=== PATIENT | female | born 1980 | race Caucasian/White ===

== ENCOUNTER 2020-05-25 07:47 | Inpatient (IN) | payer OTHER, SELFPAY ==
[2020-05-25] VITALS (9 sets, daily range): BP systolic 119–173; BP diastolic 74–93; PULSE 71–91; RESP 16–18; TEMP 35.6–37; O2SAT 97–100; BMI 24.2
--- NOTE | 2020-05-25 07:54 | ED.ABDPAIN ---
HPI - Abdominal Pain General Chief Complaint: Abdominal Pain Stated Complaint: abd pain Time Seen by Provider: 05/25/20 07:54 Source: patient Mode of arrival: ambulatory Limitations: no limitations History of Present Illness MD elicited complaint: abdominal pain Pertinent past history: none Onset (ago): day(s) (started Saturday night / Saturday morning) Pain Consistency: constant Location: none Severity: moderate Quality: cramping and stabbing Radiation: none Migration to: no migration Exacerbating factors: eating Relieving factors: nothing Associated symptoms: nausea and vomiting Related Data Allergies Allergy/AdvReac Type Severity Reaction Status Date / Time No Known Allergies Allergy Verified 05/25/20 08:04 Review of Systems Review of Systems Constitutional : No Weight loss, No Fever, No Chills ENT/Mouth : No sore throat, No Rhinorrhea Eyes: No Swelling, No Redness Cardiovascular : No Chest Pain, No SOB, NoEdema Respiratory : No Cough, No Sputum, No Wheezing Gastrointestinal : Positive Nausea, Positive Vomiting,no Diarrhea, positive abdominal Pain, No Hematochezia, No Melena Genitourinary : No Dysuria, No Urinary Frequency, No Hematuria, No Urgency Musculoskeletal : No joint pain, No Myalgias, No Joint Swelling Skin : No Skin Lesions, No rash Neuro : No Weakness, No Numbness, No Dizziness, No Headache Psych : No Anxiety/Panic, No Depression Heme/Lymph: No Bruising, No Lymphadenopathy Endocrine : No Polyuria, No Polydipsia All other systems reviewed and are negative. Physical Exam Vital Signs: Vital Signs: Last Vital Signs Temp 98.2 F 05/25/20 08:45 Pulse 75 05/25/20 08:45 Resp 16 05/25/20 08:45 BP 140/88 H 05/25/20 08:45 Pulse Ox 100 05/25/20 08:45 Body Mass Index 24.2 Appearance: Alert. Oriented X3. No acute distress. Eyes: Pupils equal, round and reactive to light. ENT: Pharynx normal. Neck: Normal inspection. Neck supple. CVS: Normal heart rate and rhythm. Pulses normal. Respiratory: No respiratory distress. Breath sounds normal. Abdomen: Soft and moderate RUQ tenderness with + Brink's sign. . Skin: Skin warm and dry. Normal skin color. Normal skin turgor. Extremities: No lower extremity edema. No calf ttp Neuro: Oriented X 3. No motor deficit. No sensory deficit. Course Course Course Narrative: Dr. Charles aware to admit patient MDM - Abdominal Pain MDM Narrative Medical decision making narrative: 40 yo female with no sig PMH here with several days of upper abdominal pain and RUQ pain with n/v after eating junk food - will need labs, IVF, GI cocktail, IV Toradol - US to evaluate GB and pancreas, dispo per results and findings. Differential Diagnosis Differential diagnosis: Likely abdominal pain Differential diagnosis narrative:: choleycystitis, pancreatitis, gastritis Lab Data Result diagrams: 05/25/20 08:24 05/25/20 08:24 Labs: Lab Results 05/25/20 05/25/20 05/25/20 Range/Units 08:12 08:24 08:24 WBC 7.9 (4.8-10.8) X10*3/uL RBC 4.67 (4.20-5.50) X10*6/uL Hgb 14.3 (12.0-16.0) g/dl Hct 41.7 (37-47) % MCV 89.3 (80-98) fL MCH 30.6 (27.0-33.0) pg MCHC 34.3 (31.0-35.0) g/dl RDW 12.5 (11.0-16.0) % Plt Count 271 (160-400) X10*3/uL MPV 10.6 (9.4-12.3) fL Immature Gran % (Auto) 0.1 (0.0-0.4) % Neut % (Auto) 71.0 (45-73) % Lymph % (Auto) 19.7 L (20-40) % [place] % (Auto) 6.8 (2-11) % Eos % (Auto) 2.3 (0-4) % Baso % (Auto) 0.1 (0-2) % Lymph # (Auto) 1.6 (1.2-4.9) X10*3/uL [place] # (Auto) 0.5 (0.1-1.2) X10*3/uL Eos # (Auto) 0.2 (0.0-0.4) X10*3/uL Baso # (Auto) 0.0 (0.0-0.2) X10*3/uL Abs Immat Gran (auto) 0.01 (0.00-0.03) X10*3/uL Absolute Neuts (auto) 5.6 (2.0-8.3) X10*3/uL Absolute Nucleated RBC 0.000 (0.0-0.012) X10*3/uL Nucleated RBC % (auto) 0.0 (0.0-0.2) /100WBC Hold Blue Top SEE NOTE Sodium (135-145) mmol/L Potassium (3.3-5.1) mmol/l Chloride (96-108) mmol/L Carbon Dioxide (22-29) mmol/L Anion Gap (12-20) BUN (9-16) mg/dL Creatinine (0.5-1.4) mg/dL Estim Creat Clear Calc Estimated GFR Random Glucose (60-115) mg/dL Calcium (8.4-10.2) mg/dL Magnesium (1.6-2.6) mg/dL Total Bilirubin (0.0-1.0) mg/dL Direct Bilirubin (0.0-0.5) mg/dL AST (5-31) U/L ALT (0-31) U/L Alkaline Phosphatase (39-117) U/L Total Protein (6.5-8.0) g/dL Albumin (3.5-5.0) g/dL Urine Color DARK YELLOW Urine Appearance CLEAR Urine pH 6.0 (5.0-8.0) Ur Specific [place] 1.020 (1.005-1.025) Urine Protein TRACE (NEG-TRACE) MG/DL Urine Glucose (UA) NEG (NEG) MG/DL Urine Ketones 15 (NEG) MG/DL Urine Blood NEG (NEG) Urine Nitrite NEG (NEG) Ur Leukocyte Esterase NEG (NEG) Urine Test NEGATIVE (NEGATIVE) 05/25/20 Range/Units 08:24 WBC (4.8-10.8) X10*3/uL RBC (4.20-5.50) X10*6/uL Hgb (12.0-16.0) g/dl Hct (37-47) % MCV (80-98) fL MCH (27.0-33.0) pg MCHC (31.0-35.0) g/dl RDW (11.0-16.0) % Plt Count (160-400) X10*3/uL MPV (9.4-12.3) fL Immature Gran % (Auto) (0.0-0.4) % Neut % (Auto) (45-73) % Lymph % (Auto) (20-40) % [place] % (Auto) (2-11) % Eos % (Auto) (0-4) % Baso % (Auto) (0-2) % Lymph # (Auto) (1.2-4.9) X10*3/uL [place] # (Auto) (0.1-1.2) X10*3/uL Eos # (Auto) (0.0-0.4) X10*3/uL Baso # (Auto) (0.0-0.2) X10*3/uL Abs Immat Gran (auto) (0.00-0.03) X10*3/uL Absolute Neuts (auto) (2.0-8.3) X10*3/uL Absolute Nucleated RBC (0.0-0.012) X10*3/uL Nucleated RBC % (auto) (0.0-0.2) /100WBC Hold Blue Top Sodium 133 L (135-145) mmol/L Potassium 3.4 (3.3-5.1) mmol/l Chloride 100 (96-108) mmol/L Carbon Dioxide 25 (22-29) mmol/L Anion Gap 11 L (12-20) BUN 10 (9-16) mg/dL Creatinine 0.75 (0.5-1.4) mg/dL Estim Creat Clear Calc 94.3 Estimated GFR > 60 Random Glucose 152 H (60-115) mg/dL Calcium 7.9 L (8.4-10.2) mg/dL Magnesium 1.7 (1.6-2.6) mg/dL Total Bilirubin 1.5 H (0.0-1.0) mg/dL Direct Bilirubin 0.9 H (0.0-0.5) mg/dL AST 91 H (5-31) U/L ALT 154 H (0-31) U/L Alkaline Phosphatase 202 H (39-117) U/L Total Protein 6.5 (6.5-8.0) g/dL Albumin 3.7 (3.5-5.0) g/dL Urine Color Urine Appearance Urine pH (5.0-8.0) Ur Specific [place] (1.005-1.025) Urine Protein (NEG-TRACE) MG/DL Urine Glucose (UA) (NEG) MG/DL Urine Ketones (NEG) MG/DL Urine Blood (NEG) Urine Nitrite (NEG) Ur Leukocyte Esterase (NEG) Urine Test (NEGATIVE) Discharge Plan Discharge Clinical Impression: Acute cholecystitis Patient Disposition: Admitted As Inpatient [facility] Past Medical History Attestation statement: The following information was validated with the patient. Medical History Asthma Social History Social History (Updated 05/25/20 @ 08:09 by Prerna Howard DO) Smoking Status: Never smoker Use of substances other than those prescribed or required for medical reasons: No Advance Directives: No Advance Directives Information Provided: No
--- NOTE | 2020-05-25 08:07 | US_ITS ---
EXAMINATION: US ABDOMEN COMPLETE CLINICAL INFORMATION: Right upper quadrant pain. COMPARISON: None TECHNIQUE: Real-time imaging of the abdominal viscera. FINDINGS: PANCREAS: Normal. ABDOMINAL AORTA: The proximal, mid, and distal segments are normal in caliber. INFERIOR VENA CAVA: Visualized portions are normal. LIVER: Normal. The liver is normal in size. The liver contour is normal. Parenchymal echogenicity is normal. No focal hepatic lesion. There is no intrahepatic biliary duct dilatation seen. GALLBLADDER: Cholelithiasis is present. There is some fluid seen within the wall of the gallbladder without pericholecystic fluid. Wall measures approximately 3 mm in diameter with some irregularity with the appearance of adenomyosis. Cholesterol polyps are present. There is tenderness to palpation overlying the gallbladder. COMMON BILE DUCT: Normal in caliber measuring 0.5 cm in diameter. RIGHT KIDNEY: Normal. No hydronephrosis. No renal calculi or focal parenchymal lesions. The kidney measures 11.6 cm in maximum dimension. LEFT KIDNEY: Normal. No hydronephrosis. No renal calculi or focal parenchymal lesions. The kidney measures 11.8 cm in maximum dimension. SPLEEN: Normal. The spleen measures 11.9 cm in maximum dimension. FREE FLUID: None. US/US abdomen complete IMPRESSION: Borderline thickened wall of the gallbladder with some fluid within the wall as well as cholelithiasis and findings of cholesterol polyps. Combination of above findings can be related to acute cholecystitis. Adenomyosis.
[2020-05-25 08:20] LABS: Glucose Urine UA NEG (NEG); Leukocyte Esterase Urine NEG (NEG); Nitrite Urine NEG (NEG); Urine Blood NEG (NEG); Urine Ketones 15 MG/DL (NEG); Urine Protein TRACE MG/DL (NEG-TRACE)
[2020-05-25 08:23] LABS: Appearance Urine CLEAR; Color Urine DARK YELLOW
[2020-05-25 08:24] LABS: UPreg QC Valid YES; Urine Pregnancy NEGATIVE (NEGATIVE)
[2020-05-25] MEDS: 0.9 % Sodium Chloride 1,000 ML 999 ML IVCONT (08:25)
[2020-05-25] MEDS: ondansetron HCL 4 MG/2 ML VIAL IVPUSH (08:25)
[2020-05-25] MEDS: Magnesium Hydrox/Alum Hydrox 30 ML ORAL.SUSP PO (08:25)
[2020-05-25] MEDS: Lidocaine HCl Viscous 2 % 15 ML SOLUTION MUCOUS MEM (08:25)
[2020-05-25] MEDS: Ketorolac Tromethamine 30 MG/ML VIAL IVPUSH (08:26)
[2020-05-25 08:54] LABS: MANUAL DIFF FLAG NO
[2020-05-25 08:57] LABS: Basophils Percent Auto 0.1 % (0-2); Eosinophils Absolute Auto 0.2 X10*3/uL (0.0-0.4); Eosinophils Percent Auto 2.3 % (0-4); Hematocrit 41.7 % (37-47); Hemoglobin 14.3 g/dl (12.0-16.0); Imm Gran Abs Auto 0.01 X10*3/uL (0.00-0.03); Imm Gran Pct Auto 0.1 % (0.0-0.4); Lymphocytes Absolute Auto 1.6 X10*3/uL (1.2-4.9); Lymphocytes Percent Auto 19.7 % (20-40); Mean Corpuscular HGB Conc 34.3 g/dl (31.0-35.0); Mean Corpuscular Hemoglobin 30.6 pg (27.0-33.0); Mean Corpuscular Volume 89.3 fL (80-98); Mean Platelet Volume 10.6 fL (9.4-12.3); Monocytes Absolute Auto 0.5 X10*3/uL (0.1-1.2); Monocytes Percent Auto 6.8 % (2-11); Neutrophils Absolute Auto 5.6 X10*3/uL (2.0-8.3); Platelet Count 271 X10*3/uL (160-400); Red Blood Count 4.67 X10*6/uL (4.20-5.50); Red Cell Distribution Width 12.5 % (11.0-16.0); White Blood Count 7.9 X10*3/uL (4.8-10.8)
[2020-05-25 09:28] LABS: Alanine Aminotransferase 154 U/L (0-31); Albumin Level 3.7 g/dL (3.5-5.0); Alkaline Phosphatase 202 U/L (39-117); Anion Gap 11 (12-20); Aspartate Amino Transferase 91 U/L (5-31); Bilirubin Direct 0.9 mg/dL (0.0-0.5); Bilirubin Total 1.5 mg/dL (0.0-1.0); Blood Urea Nitrogen 10 mg/dL (9-16); Calcium 7.9 mg/dL (8.4-10.2); Carbon Dioxide 25 mmol/L (22-29); Chloride 100 mmol/L (96-108); Creatinine Clr Calc Pharmacy 94.3; Estimated Glomerular Filt Rate > 60; Glucose Random 152 mg/dL (60-115); Magnesium 1.7 mg/dL (1.6-2.6); Potassium 3.4 mmol/l (3.3-5.1); Sodium 133 mmol/L (135-145); Total Protein 6.5 g/dL (6.5-8.0)
[2020-05-25] MEDS: Piperacillin Sodium/Tazobactam 3.375 GM in 0.9 % Sodium Chloride 50 ML IV ×3 (11:00→23:59)
[2020-05-25 11:05] LABS: Lipase 2702 U/L (8-78)
[2020-05-25 11:29] LABS: COVID-19 Test Negative (Negative)
--- NOTE | 2020-05-25 12:06 | P.HPGS_ITS ---
History of Present Illness History of Present Illness Date of Service: 05/25/20 Chief complaint: abd pain Narrative: Chantale Sandoval is a 40 year old female presenting with a complaint of abdominal pain in the epigastrium and right upper quadrant radiating into the back. Pain began last Saturday05/20/2020 after eating some junk food. Pain has persisted is been associated with nausea and vomiting. She is not sure if she has had a fever but she has felt chills. She denies a cough or other respiratory symptoms. She does have a history of heartburn but denies pain to this severity. The pain has persisted despite avoiding all foods therefore she presented to the emergency department. Emergency department she was noted to be tender in the right upper quadrant with a positive Brink sign. Ultrasound of the abdomen confirmed gallstones within the gallbladder with a tender gallb ladder suggestive of acute cholecystitis. Review of Systems Constitutional: Constitutional: Denies chills, Denies fever(s), Denies headache(s) and Denies poor appetite ENT: Denies dizziness and Denies headache(s) Cardiovascular: Cardiovascular: Denies chest pain, Denies rapid heart rate, Denies palpitations and Denies slow heart rate Respiratory: Respiratory: Denies chest congestion, Denies cough, Denies pain on inspiration and Denies wheezing Comments: History of mild asthma, taking no medications Gastrointestinal: Gastrointestinal: Reports abdominal pain, Denies bloating, Denies change in stool character, Denies constipation, Denies diarrhea, Reports nausea, Reports vomiting and Denies hematemesis Musculoskeletal: Musculoskeletal: Denies back pain, Denies arthralgias, Denies joint swelling and Denies numbness Integumentary/Breasts: Skin/Breast: Denies change in pigmentation, Denies erythema and Denies rash Neurologic: Denies confusion, Denies dizziness, Denies headache(s) and Denies numbness Psychiatric: Psychiatric: Denies anxiety, Denies confusion and Denies depression Endocrine: Endocrine: Denies palpitations Hematologic/Lymphatic: Hematologic/Lymphatic: Denies easy bleeding, Denies easy bruising and Denies lymphadenopathy Allergic/Immunologic: Allergic/Immunologic: Denies wheezing PMFSH Past Medical History Medical History Asthma Social History Social History Alcohol intake: never Smoking Status: Never smoker Use of substances other than those prescribed or required for medical reasons: No Advance Directives: No Advance Directives Information Provided: No Meds Allergies Allergy/AdvReac Type Severity Reaction Status Date / Time No Known Allergies Allergy Verified 05/25/20 08:04 Physical Exam Vital Signs: Vital Signs: Last Vital Signs Temp 98.2 F 05/25/20 10:58 Pulse 91 05/25/20 10:58 Resp 16 05/25/20 10:58 BP 146/93 H 05/25/20 10:58 Pulse Ox 100 05/25/20 10:58 Body Mass Index 24.2 Const: General: cooperative, comfortable and well developed; No confusion Nutritional Appearance: well nourished Orientation/consciousness: patient oriented x3 and No confusion Eyes: Sclerae: sclerae normal EOM: EOMs intact bilaterally Neck: Neck: Yes normal visual inspection Resp: Effort & Inspection: normal respiratory effort, no cough and no respiratory distress Cardio: Jugular venous distension: no JVD Rate: regular rate Rhythm: regular rhythm GI: Inspection: Yes normal to inspection Palpation (GI): Soft to palpation, Tenderness to palpation present (GI) in the RUQ and Brink's sign positive, no guarding and not rigid Percussion: Yes normal to percussion Auscultation: normal bowel sounds Skin: General skin exam: dry skin Rashes: no rashes Neuro: General: patient oriented x3, no focal motor deficits and No confusion Extrem: General: Yes full ROM and Yes no clubbing, cyanosis or edema Results Results Labs: Short CBC 05/25/20 Range/Units 08:24 WBC 7.9 (4.8-10.8) X10*3/uL Hgb 14.3 (12.0-16.0) g/dl Hct 41.7 (37-47) % Plt Count 271 (160-400) X10*3/uL BMP 05/25/20 08:24 Sodium 133 L Potassium 3.4 Chloride 100 Carbon Dioxide 25 BUN 10 Creatinine 0.75 Calcium 7.9 L Liver Function 05/25/20 Range/Units 08:24 Total Bilirubin 1.5 H (0.0-1.0) mg/dL Direct Bilirubin 0.9 H (0.0-0.5) mg/dL AST 91 H (5-31) U/L ALT 154 H (0-31) U/L Alkaline Phosphatase 202 H (39-117) U/L Albumin 3.7 (3.5-5.0) g/dL Urine 05/25/20 Range/Units 08:12 Urine Color DARK YELLOW Urine Appearance CLEAR Urine pH 6.0 (5.0-8.0) Ur Specific [place] 1.020 (1.005-1.025) Urine Protein TRACE (NEG-TRACE) MG/DL Urine Glucose (UA) NEG (NEG) MG/DL Urine Test NEGATIVE (NEGATIVE) Assessment and Plan (1) Acute cholecystitis: Status: Acute Patient presents with complaints of abdominal pain of 6 days duration located in the right upper quadrant. On examination the patient is tender in the right upper quadrant with a positive Brink sign. Laboratories revealed normal white blood cell count however ultrasound is significant for changes consistent with acute cholecystitis due to cholelithiasis. We discussed options including laparoscopic cholecystectomy. To have abdominal pain despite restricting her intake, she wishes to proceed with the surgery. After discussion of the procedure, risks, and alternatives, she consents to a laparoscopic or possible open cholecystectomy. She will be added on the schedule for tomorrow.
--- NOTE | 2020-05-25 14:18 | PC.NURSE ---
call to med-surg for report.
--- NOTE | 2020-05-25 15:08 | PC.NURSE ---
x1 attempt to give report to med surg- awaiting callback
[2020-05-25] MEDS: 0.9 % Sodium Chloride Flush 3 ML SYRINGE IVFLUSH (18:29)
[2020-05-25] MEDS: Dextrose 5 % and Lactated Ring 1,000 ML 125 ML IVCONT (19:16)
[2020-05-25] MEDS: Flu Vacc QS2020-21(6mos up)/PF 0.5 ML SYRINGE IM (21:01)
[2020-05-26] VITALS (10 sets, daily range): BP systolic 120–158; BP diastolic 75–85; PULSE 62–94; RESP 16–20; TEMP 36.2–37.6; O2SAT 95–98; BMI 24.2
[2020-05-26] MEDS: 0.9 % Sodium Chloride Flush 3 ML SYRINGE IVFLUSH (00:09)
[2020-05-26] MEDS: Piperacillin Sodium/Tazobactam 3.375 GM in 0.9 % Sodium Chloride 50 ML IV (04:57)
--- NOTE | 2020-05-26 08:51 | MHC.CM.PN ---
PATIENT LIVES WITH FAMILY. SHE IS INDEPENDENT WITH ALL ADLS. NO DME OR SERVICES IN THE HOME. PATIENT WILL REQUIRE A RETURN TO WORK NOTE UPON DISCHARGE. SURGERY SCHEDULED FOR 14:00 TODAY; HOWEVER, SHE MAY BE ABLE TO BE SCHEDULED EARLIER ACCORDING TO PATIENT. CASE MANAGEMENT FOLLOWING FOR ANY DISCHARGE NEEDS.
--- NOTE | 2020-05-26 11:28 | HO.ANESPROP2 ---
FORMERLY [facility], LATER [facility] Past Medical History Medical History Asthma Social History Social History Household Members: Significant Other and Children Housing: House Do you presently have visiting nurse or other home services: No Alcohol intake: never Smoking Status: Never smoker Use of substances other than those prescribed or required for medical reasons: No Have you been hit, kicked, punched, or otherwise hurt by someone within the past year? If so, by whom?: No Do you feel safe in your current relationship?: Yes Is there a partner from a previous relationship who is making you feel unsafe now?: No Are you made to feel afraid or neglected: No Advance Directives: No Advance Directives Information Provided: No Do you have thoughts of harming others: None Do you have a plan to hurt others: No Plan Recently lost weight without trying: No Meds Allergies Allergy/AdvReac Type Severity Reaction Status Date / Time No Known Allergies Allergy Verified 05/25/20 08:04 Home Medications Medication Instructions Recorded Confirmed Type norethindrone-ethin estradiol 1 tab PO DAILY 05/25/20 05/25/20 History [Heather (29)] Exam Exam Date and Time: May 26, 2020 1128 Height,Weight and Vital Signs: Height 5 ft 6 in Weight 68.039 kg Last Vital Signs Temp 99.7 F 05/26/20 11:03 Pulse 81 05/26/20 11:03 Resp 16 05/26/20 11:03 BP 134/85 05/26/20 11:03 Pulse Ox 98 05/26/20 11:03 Pertinent Lab Results Pertinent Lab Results: Laboratory Tests 05/25/20 05/25/20 05/25/20 08:12 08:24 08:24 WBC 7.9 RBC 4.67 Hgb 14.3 Hct 41.7 MCV 89.3 MCH 30.6 MCHC 34.3 RDW 12.5 Plt Count 271 MPV 10.6 Immature Gran % (Auto) 0.1 Neut % (Auto) 71.0 Lymph % (Auto) 19.7 L [place] % (Auto) 6.8 Eos % (Auto) 2.3 Baso % (Auto) 0.1 Lymph # (Auto) 1.6 [place] # (Auto) 0.5 Eos # (Auto) 0.2 Baso # (Auto) 0.0 Abs Immat Gran (auto) 0.01 Absolute Neuts (auto) 5.6 Absolute Nucleated RBC 0.000 Nucleated RBC % (auto) 0.0 Hold Blue Top SEE NOTE Sodium Potassium Chloride Carbon Dioxide Anion Gap BUN Creatinine Estim Creat Clear Calc Estimated GFR Random Glucose Calcium Magnesium Total Bilirubin Direct Bilirubin AST ALT Alkaline Phosphatase Total Protein Albumin Lipase Urine Color DARK YELLOW Urine Appearance CLEAR Urine pH 6.0 Ur Specific [place] 1.020 Urine Protein TRACE Urine Glucose (UA) NEG Urine Ketones 15 Urine Blood NEG Urine Nitrite NEG Ur Leukocyte Esterase NEG Urine Test NEGATIVE COVID-19 ([facility]) COVID-[place] 05/25/20 05/25/20 08:24 10:50 WBC RBC Hgb Hct MCV MCH MCHC RDW Plt Count MPV Immature Gran % (Auto) Neut % (Auto) Lymph % (Auto) [place] % (Auto) Eos % (Auto) Baso % (Auto) Lymph # (Auto) [place] # (Auto) Eos # (Auto) Baso # (Auto) Abs Immat Gran (auto) Absolute Neuts (auto) Absolute Nucleated RBC Nucleated RBC % (auto) Hold Blue Top Sodium 133 L Potassium 3.4 Chloride 100 Carbon Dioxide 25 Anion Gap 11 L BUN 10 Creatinine 0.75 Estim Creat Clear Calc 94.3 Estimated GFR > 60 Random Glucose 152 H Calcium 7.9 L Magnesium 1.7 Total Bilirubin 1.5 H Direct Bilirubin 0.9 H AST 91 H ALT 154 H Alkaline Phosphatase 202 H Total Protein 6.5 Albumin 3.7 Lipase 2702 H Urine Color Urine Appearance Urine pH Ur Specific [place] Urine Protein Urine Glucose (UA) Urine Ketones Urine Blood Urine Nitrite Ur Leukocyte Esterase Urine Test COVID-19 ([facility]) Negative COVID-19 Clin Com See Note Airway Mallampati Class: II TM Dist: >3cm Neck ROM: Full
[2020-05-26] MEDS: Lactated Ringers 1,000 ML 100 ML IVCONT (11:34)
--- NOTE | 2020-05-26 11:46 | MHC.SHP ---
Pre-Procedural Eval Section A The patient is an INPATIENT: Yes The History & Physical has been completed within 30 days and I have reviewed it.: Yes Section B Chief Complaint: acute cholecystitis, cholelithiasis Allergies: Allergies Allergy/AdvReac Type Severity Reaction Status Date / Time No Known Allergies Allergy Verified 05/25/20 08:04 Plan Diagnosis/Plan: Unchanged I have reviewed the history and physical and performed a pertinent physical examination on my patient. No changes have occurred unless specified.
--- NOTE | 2020-05-26 12:53 | P.BOP_ITS ---
Brief Operative Note Date of Service: 05/26/20 Pre-op diagnosis: Acute cholecystitis, cholelithiasis Post-op diagnosis: same Procedure: Laparoscopic cholecystectomy Implants: none Surgeon: Karri Charles MD Anesthesia: SARA Plant Accountant: Radha Velasco Estimated blood loss (mL): 5 Pathology: other (gallbladder) Condition: stable Disposition: PACU
--- NOTE | 2020-05-26 12:54 | W.PM.OPN ---
Operative Note Operative Note Date of Service: 05/26/20 Narrative: Preoperative diagnosis: Acute cholecystitis, cholelithiasis Postoperative diagnosis: Same Procedure: Laparoscopic cholecystectomy Surgeon: Karri Charles MD Director Of Mechanical Engineering: LETITIA Huffman Anesthesia: General endotracheal Indications for procedure: 40-year-old female patient presents on a PE found to have a thickened gallbladder on ultrasound with tenderness Operative findings: Distended gallbladder with inflamed wall, large gallstone within the gallbladder Specimen: Gallbladder Estimated blood loss: 5 ml Complications: None Procedure details: Patient was brought to the OR and placed in a supine position. After administering general anesthesia the patient's abdomen was prepped with ChloraPrep and draped in a sterile fashion. Local anesthesia consisting of 0.75% Sensorcaine with epinephrine was infiltrated in a periumbilical region. A 5 mm incision was made above the umbilicus in a transverse fashion. The Veress needle was then inserted while elevating abdominal cavity with towel clips. After positive drop test the abdomen was insufflated to a pressure of 15 mm of mercury. The Veress needle was then removed and a 5 mm trocar inserted. The camera was inserted in the abdomen explored. A 12 mm trocar was then placed in the epigastrium and 2 5 mm trocars placed in the right upper quadrant. The patient was placed in reverse Trendelenburg positioning and rotated to the left. The gallbladder was grasped with the fundus and retracted cephalad.. The infundibulum Was then grasped and retracted away from the liver bed. The Dolphin dissected was then used to dissect the peritoneum off the infundibulum to reveal the junction with the cystic duct. Cystic artery was noted slightly medial and posterior to the cystic duct. After obtaining a critical view the cystic duct was doubly clipped and divided. The cystic artery was then doubly clipped and divided. The gallbladder was then dissected off the liver bed using electrocautery with an L hook. Hemostasis was assured all times using the electrocautery. When the gallbladder is completely dissected off the liver bed was placed in an Endo-Catch bag and brought out through the epigastric incision. The gallbladder was sent to pathology for further examination. The abdomen was then re-examined. The liver bed was irrigated and suctioned dry. No bleeding or bile leak could be identified. CO2 was then evacuated and all trocars removed. Fascia was closed at the epigastric incision using a [id number] 0 Polysorb suture. Skin was closed in all incisions using a subcuticular 4 0 Polysorb suture. Sterile dressings consisting of Steri-Strips, 2 x 2 gauze, and Tegaderm were then applied. The patient tolerated the procedure well. Sponge instrument and needle counts reported as correct. The patient was transferred to PACU in stable condition.
[2020-05-26] MEDS: Dextrose 5 % and Lactated Ring 1,000 ML 125 ML IVCONT ×2 (14:57→23:00)
[2020-05-26] MEDS: oxyCODONE HCl Immed Release 5 MG TABLET PO (20:16)
[2020-05-26] MEDS: HYDROmorphone HCl 0.5 MG/0.5 ML SYRINGE IVPUSH (23:09)
[2020-05-27 04:00] VITALS: BP 132/88; PULSE 77; RESP 20; O2SAT 96
[2020-05-27] MEDS: oxyCODONE HCl Immed Release 5 MG TABLET PO ×2 (07:56→16:00)
[2020-05-27] MEDS: 0.9 % Sodium Chloride Flush 3 ML SYRINGE IVFLUSH (07:57)
--- NOTE | 2020-05-27 07:57 | PM.PNGS ---
Subjective Subjective Date of Service: 05/27/20 <Radha Velasco PA-C - Last Filed: 05/27/20 08:01> 05/27/20 <Michael Hayes MD - Last Filed: 05/27/20 09:52> Interval history: Feels fairly well but sore at incision sites and RUQ/right shoulder. Better this morning. Tolerating solid diet without N/V. OOB and ambulating. <Radha Velasco PA-C - Last Filed: 05/27/20 08:01> Physical Exam Vital Signs: Vital Signs: Last Vital Signs Temp 97.7 F 05/26/20 19:51 Pulse 77 05/27/20 04:00 Resp 20 05/27/20 04:00 BP 132/88 05/27/20 04:00 Pulse Ox 96 05/27/20 04:00 Body Mass Index 24.2 <MILA Huffman Last Filed: 05/27/20 08:01> Const: General: healthy appearing, comfortable, no acute distress and alert <Radha Velasco PA-C - Last Filed: 05/27/20 08:01> Orientation/consciousness: patient oriented x3 <MILA Huffman Last Filed: 05/27/20 08:01> Eyes: Sclerae: sclerae normal <MILA Huffman Last Filed: 05/27/20 08:01> Resp: Effort & Inspection: normal respiratory effort <MILA Huffman Last Filed: 05/27/20 08:01> GI: Inspection: No distended and Yes incision (dressings c/d/i) <MILA Huffman Last Filed: 05/27/20 08:01> Palpation (GI): Soft to palpation, Tenderness to palpation present (GI) (mild, incisional and RUQ), no guarding, not rigid and No Rebound tenderness present <MILA Huffman Last Filed: 05/27/20 08:01> Skin: General skin exam: no rashes or lesions noted <MILA Huffman Last Filed: 05/27/20 08:01> Neuro: General: patient oriented x3 <Radha Velasco PA-C - Last Filed: 05/27/20 08:01> Extrem: General: Yes no clubbing, cyanosis or edema <Radha Velasco PA-C - Last Filed: 05/27/20 08:01> Progress Note: A&P Assessment and plan (1) Acute cholecystitis: Status: Acute <Radha Velasco PA-C - Last Filed: 05/27/20 08:01> Assessment and Plan: feels well abd soft dressings dry clinically looks well ok to dc home today dc instructions given seen and examined - agree with LOREE Velasco <Michael Hayes MD - Last Filed: 05/27/20 09:52> (2) S/P laparoscopic cholecystectomy: Problem details: POD #1 <Radha Velasco PA-C - Last Filed: 05/27/20 08:01> Status: Acute <Radha Velasco PA-C - Last Filed: 05/27/20 08:01> Assessment and Plan: Doing well post op, comfortable and tolerating solid diet. VSS. Abd exam is benign with appropriate post op tenderness and clean dressings. Will reassess later today for likely d/c to home. Patient comfortable with plan. <Radha Velasco PA-C - Last Filed: 05/27/20 08:01> Fall Risk Details Current Medications: Current Medications Generic Name Dose Route Start Last Admin Trade Name Freq PRN Reason Stop Dose Admin Acetaminophen 650 mg 05/25/20 16:29 Acetaminophen 325 Mg Tablet PO Q6H PRN Pain, Mild (Pain Scale 1-3) Docusate Sodium 100 mg 05/25/20 16:29 Docusate Sodium 100 Mg Capsule PO DAILY PRN Constipation Hydromorphone HCl 0.5 mg 05/25/20 16:29 05/26/20 23:09 Hydromorphone Hcl 0.5 Mg/0.5 Ml Syringe IVPUSH 0.5 mg Q4H PRN Administration Pain, Severe (Pain Scale 7-10) Dextrose/Lactated Ringer's 1,000 mls @ 125 mls/hr 05/25/20 16:29 05/26/20 23:00 D5lr IVCONT 125 mls/hr .Q8H [place] Administration Ondansetron HCl 4 mg 05/25/20 16:29 Ondansetron Hcl 4 Mg/2 Ml Vial IVPUSH Q8H PRN Nausea and Vomiting Oxycodone HCl 5 mg 05/25/20 16:29 05/26/20 20:16 Oxycodone Hcl Immed Release 5 Mg Tablet PO 5 mg Q6H PRN Administration Pain, Moderate (Pain Scale 4-6 Sodium Chloride 3 ml 05/25/20 16:29 05/27/20 00:36 0.9 % Sodium Chloride Flush 3 Ml Syringe IVFLUSH Not Given QSHIFT [place] Zolpidem Tartrate 5 mg 05/25/20 16:29 Zolpidem Tartrate 5 Mg Tablet PO BEDTIME PRN Insomnia <Radha Velasco PA-C - Last Filed: 05/27/20 08:01> Time Spent With Patient Time: Total time spent is greater than 50% in coordination of care (as documented) at patient's floor/unit and/or counseling patient: <Radha Velasco PA-C - Last Filed: 05/27/20 08:01> Time with patient: 15 - 24 minutes <Radha Velasco PA-C - Last Filed: 05/27/20 08:01>
[2020-05-27 08:00] VITALS: BP 155/85; PULSE 68; RESP 18; TEMP 37.2; O2SAT 100
[2020-05-27 11:29] VITALS: O2SAT 99
[2020-05-27 11:49] VITALS: BP 133/72; PULSE 86; RESP 18; TEMP 36.3; O2SAT 100
--- NOTE | 2020-05-27 13:59 | HO.POSTANES ---
Post Anesthesia Evaluation Post Anesthesia Evaluation Vital Signs: Vital Signs Temp Pulse Resp BP Pulse Ox 05/27/20 11:49 97.4 F 86 18 133/72 100 05/27/20 11:29 99 05/27/20 08:00 98.9 F 68 18 155/85 H 100 05/27/20 04:00 77 20 132/88 96 Anesthesia: General Endotracheal-GETA Mental Status: Awake Pain Control: Satisfactory Nausea/Vomiting: None Hydration: Adequate Anesthesia-Related Issues: No Anes. Related Issues
--- NOTE | 2020-05-27 14:40 | MHC.CM.PN ---
pt cleared for DC today, home with no services. pt will self arrange transport
--- NOTE | 2020-05-31 10:05 | PM.DS ---
DS: Providers Provider Date of admission: 05/25/20 12:02 Date of discharge: 05/27/20 Primary care physician: Darien Armendariz MD Attending physician on admission: Karri Charles Attending physician on discharge: Karri Charles DS: Diagnosis Discharge Diagnosis (1) Acute cholecystitis: Status: Acute DS: Medications Discharge Medications Home Medications: Home Medications Medication Instructions Recorded Confirmed Heather (28) 1 tab PO DAILY 05/25/20 05/25/20 Previous Rx's Medication Instructions Recorded oxycodone 5 mg PO Q6H PRN #15 tab 05/26/20 DS: Summary Hospital Course Hospital Course: Chantale Sandoval is a 40 year old female presenting with a complaint of abdominal pain in the epigastrium and right upper quadrant radiating into the back.? Pain began last Saturday05/20/2020 after eating some junk food.? Pain has persisted is been associated with nausea and vomiting.? She is not sure if she has had a fever but she has felt chills.? She denies a cough or other respiratory symptoms.? She does have a history of heartburn but denies pain to this severity.? The pain has persisted despite avoiding all foods therefore she presented to the emergency department.? Emergency department she was noted to be tender in the right upper quadrant with a positive Brink sign.? Ultrasound of the abdomen confirmed gallstones within the gallbladder with a tender gallbladder suggestive of acute cholecystitis. On 05/26/2020 she underwent a laparoscopic cholecystectomy with operative findings revealing a distended gallbladder with inflamed wall, large gallstone within the gallbladder. She tolerated the procedure well and was started on a low fat diet postoperatively. On the first post operative day, she tolerated the diet without nausea or vomiting and was comfortable on oral pain medications. She was subsequently discharged to home in stable condition. Time Spent with Patient Time attestation: Total time spent providing and/or coordinating discharge services: Physical Exam Vital Signs: Vital Signs: Last Vital Signs Temp 97.4 F 05/27/20 11:49 Pulse 86 05/27/20 11:49 Resp 18 05/27/20 11:49 BP 133/72 05/27/20 11:49 Pulse Ox 100 05/27/20 11:49 Body Mass Index 24.2 Const: General: cooperative, comfortable and well developed; No confusion Nutritional Appearance: well nourished Orientation/consciousness: patient oriented x3 and No confusion Eyes: Sclerae: sclerae normal EOM: EOMs intact bilaterally Neck: Neck: Yes normal visual inspection Resp: Effort & Inspection: normal respiratory effort, no cough and no respiratory distress Cardio: Jugular venous distension: no JVD Rate: regular rate Rhythm: regular rhythm GI: Other: trochar dressings are clean, dry and intact. Inspection: Yes normal to inspection Palpation (GI): Soft to palpation, Tenderness to palpation present (GI), no guarding and not rigid Percussion: Yes normal to percussion Auscultation: normal bowel sounds Skin: General skin exam: dry skin Rashes: no rashes Neuro: General: patient oriented x3, no focal motor deficits and No confusion Extrem: General: Yes full ROM and Yes no clubbing, cyanosis or edema DS: Data Data Completed and Pending Pending studies at discharge: Pending at discharge 05/26/20 12:45 Surgical [PTH] Routine Labs on day of discharge: 05/25/20 08:05 Ketorolac Tromethamine [Toradol] 30 mg IVPUSH ONCE ONE Lidocaine HCl Viscous 2 % [Xylocaine Viscous 2 % Oral Li] 15 ml MUCOUS MEM ONCE ONE Magnesium Hydrox/Alum Hydrox [Maalox] 30 ml PO ONCE ONE ondansetron HCL [Zofran] 4 mg IVPUSH ONCE ONE 05/25/20 08:07 US abdomen complete Stat 05/25/20 08:12 UA CC w/rflx Micro + Cult Stat Ur Preg Test Stat 05/25/20 08:15 0.9 % Sodium Chloride [Ns] 1,000 ml IVCONT 999 mls/hr 05/25/20 08:24 Basic Metabolic Panel Stat Complete Blood Count Auto Diff Stat Hold Lt Blue - Possible Coag Stat Lipase Stat Liver Panel Stat Magnesium Stat 05/25/20 10:36 Piperacillin Sodium/Tazobactam [Zosyn] 3.375 gm 0.9 % Sodium Chloride [Ns] 50 ml IV ONCE 05/25/20 10:39 Piperacillin Sodium/Tazobactam [Zosyn] 3.375 gm IV .STK-MED ONE 05/25/20 10:50 COVID-19 ID NOW ([place]) Stat 05/25/20 11:57 Code Status Routine Transfer Order Routine 05/25/20 16:29 0.9 % Sodium Chloride Flush [NS Flush] 3 ml IVFLUSH QSHIFT Acetaminophen [Tylenol] 650 mg PO Q6H PRN Dextrose 5 % and Lactated Ring [D5lr] 1,000 ml IVCONT 125 mls/hr Docusate Sodium [Colace] 100 mg PO DAILY PRN HYDROmorphone HCl [Dilaudid] 0.5 mg IVPUSH Q4H PRN Zolpidem Tartrate [Ambien] 5 mg PO BEDTIME PRN ondansetron HCL [Zofran] 4 mg IVPUSH Q8H PRN oxyCODONE HCl Immed Release [Roxicodone] 5 mg PO Q6H PRN 05/25/20 16:29 Ambulate QSHIFT WHILE AWAKE Compression Therapy QSHIFT IV insert/maintain Q4HR Intake and Output QSHIFTE Vital Signs QSHIFT 05/25/20 17:00 Piperacillin Sodium/Tazobactam [Zosyn] 3.375 gm 0.9 % Sodium Chloride [Ns] 50 ml IV Q6H 05/25/20 18:18 Piperacillin Sodium/Tazobactam [Zosyn] 3.375 gm IV .STK-MED ONE 05/25/20 19:26 Flu Vacc [id number](6mos up)/PF [Fluarix Quad [id number]] 0.5 ml IM .ONCE ONE 05/25/20 23:51 Piperacillin Sodium/Tazobactam [Zosyn] 3.375 gm IV .STK-MED ONE 05/26/20 04:47 Piperacillin Sodium/Tazobactam [Zosyn] 3.375 gm IV .STK-MED ONE 05/26/20 05:51 Transfer Order Routine 05/26/20 11:00 Acetaminophen [Ofirmev] 1,000 mg in 100 ml IV Q6H cefoTEtan disod/Dextrose,Iso [Cefotan] 2 gm in 50 ml IV PREOP 05/26/20 11:15 cefoTEtan disodium [Cefotan] 2 gm .ROUTE .STK-MED ONE 05/26/20 11:16 Acetaminophen [Ofirmev] 1,000 mg in 100 ml IV As directed 05/26/20 11:29 Continuous pulse oximetry CONT Oxygen administration Nasal Cannula 3 lpm Vital Signs Q1H Vital Signs Q5MIN fentaNYL citrate/PF [Sublimaze] 50 mcg IVPUSH Q5M PRN ondansetron HCL [Zofran] 4 mg IVPUSH ONCE PRN oxyCODONE HCl Immed Release [Roxicodone] 10 mg PO ONCE PRN 05/26/20 11:30 Lactated Ringers [Lr] 1,000 ml IVCONT 100 mls/hr 05/26/20 11:43 Bupivacaine MPF 0.75 % w/EPI [Sensorcaine MPF 0.75%/EPI 1:200,000] 30 ml .ROUTE .STK-MED ONE 05/26/20 11:57 Midazolam HCl/PF [Versed] 2 mg .ROUTE .STK-MED ONE fentaNYL citrate/PF [Sublimaze] 50 mcg .ROUTE .STK-MED ONE 05/26/20 12:11 Lidocaine HCl 2 % MPF [Xylocaine 2 % MPF] 5 ml .ROUTE .STK-MED ONE Rocuronium [place] [Zemuron] 100 mg IV .STK-MED ONE Sugammadex Sodium [[place]] 200 mg IVPUSH .STK-MED ONE dexAMETHasone sod phosphate [Decadron] 4 mg .ROUTE .STK-MED ONE ondansetron HCL [Zofran] 4 mg .ROUTE .STK-MED ONE propofoL [Diprivan] 200 mg IVPUSH .STK-MED ONE 05/26/20 12:13 fentaNYL citrate/PF [Sublimaze] 50 mcg .ROUTE .STK-MED ONE 05/26/20 12:16 Ketamine HCl/NS 50 mg IVPUSH .STK-MED ONE 05/26/20 12:29 HYDROmorphone HCl [Dilaudid] 2 mg .ROUTE .STK-MED ONE 05/26/20 12:52 Ketorolac Tromethamine [Toradol] 30 mg .ROUTE .STK-MED ONE 05/26/20 12:55 Transfer Order Routine Laboratory Last Values WBC 7.9 X10*3/uL (4.8-10.8) 05/25/20 08:24 RBC 4.67 X10*6/uL (4.20-5.50) 05/25/20 08:24 Hgb 14.3 g/dl (12.0-16.0) 05/25/20 08:24 Hct 41.7 % (37-47) 05/25/20 08:24 MCV 89.3 fL (80-98) 05/25/20 08:24 MCH 30.6 pg (27.0-33.0) 05/25/20 08:24 MCHC 34.3 g/dl (31.0-35.0) 05/25/20 08:24 RDW 12.5 % (11.0-16.0) 05/25/20 08:24 Plt Count 271 X10*3/uL (160-400) 05/25/20 08:24 MPV 10.6 fL (9.4-12.3) 05/25/20 08:24 Immature Gran % (Auto) 0.1 % (0.0-0.4) 05/25/20 08:24 Neut % (Auto) 71.0 % (45-73) 05/25/20 08:24 Lymph % (Auto) 19.7 % (20-40) L 05/25/20 08:24 [place] % (Auto) 6.8 % (2-11) 05/25/20 08:24 Eos % (Auto) 2.3 % (0-4) 05/25/20 08:24 Baso % (Auto) 0.1 % (0-2) 05/25/20 08:24 Lymph # (Auto) 1.6 X10*3/uL (1.2-4.9) 05/25/20 08:24 [place] # (Auto) 0.5 X10*3/uL (0.1-1.2) 05/25/20 08:24 Eos # (Auto) 0.2 X10*3/uL (0.0-0.4) 05/25/20 08:24 Baso # (Auto) 0.0 X10*3/uL (0.0-0.2) 05/25/20 08:24 Abs Immat Gran (auto) 0.01 X10*3/uL (0.00-0.03) 05/25/20 08:24 Absolute Neuts (auto) 5.6 X10*3/uL (2.0-8.3) 05/25/20 08:24 Absolute Nucleated RBC 0.000 X10*3/uL (0.0-0.012) 05/25/20 08:24 Nucleated RBC % (auto) 0.0 /100WBC (0.0-0.2) 05/25/20 08:24 Hold Blue Top SEE NOTE 05/25/20 08:24 Sodium 133 mmol/L (135-145) L 05/25/20 08:24 Potassium 3.4 mmol/l (3.3-5.1) 05/25/20 08:24 Chloride 100 mmol/L (96-108) 05/25/20 08:24 Carbon Dioxide 25 mmol/L (22-29) 05/25/20 08:24 Anion Gap 11 (12-20) L 05/25/20 08:24 BUN 10 mg/dL (9-16) 05/25/20 08:24 Creatinine 0.75 mg/dL (0.5-1.4) 05/25/20 08:24 Estim Creat Clear Calc 94.3 05/25/20 08:24 Estimated GFR > 60 05/25/20 08:24 Random Glucose 152 mg/dL (60-115) H 05/25/20 08:24 Calcium 7.9 mg/dL (8.4-10.2) L 05/25/20 08:24 Magnesium 1.7 mg/dL (1.6-2.6) 05/25/20 08:24 Total Bilirubin 1.5 mg/dL (0.0-1.0) H 05/25/20 08:24 Direct Bilirubin 0.9 mg/dL (0.0-0.5) H 05/25/20 08:24 AST 91 U/L (5-31) H 05/25/20 08:24 ALT 154 U/L (0-31) H 05/25/20 08:24 Alkaline Phosphatase 202 U/L (39-117) H 05/25/20 08:24 Total Protein 6.5 g/dL (6.5-8.0) 05/25/20 08:24 Albumin 3.7 g/dL (3.5-5.0) 05/25/20 08:24 Lipase 2702 U/L (8-78) H 05/25/20 08:24 Urine Color DARK YELLOW 05/25/20 08:12 Urine Appearance CLEAR 05/25/20 08:12 Urine pH 6.0 (5.0-8.0) 05/25/20 08:12 Ur Specific [place] 1.020 (1.005-1.025) 05/25/20 08:12 Urine Protein TRACE MG/DL (NEG-TRACE) 05/25/20 08:12 Urine Glucose (UA) NEG MG/DL (NEG) 05/25/20 08:12 Urine Ketones 15 MG/DL (NEG) 05/25/20 08:12 Urine Blood NEG (NEG) 05/25/20 08:12 Urine Nitrite NEG (NEG) 05/25/20 08:12 Ur Leukocyte Esterase NEG (NEG) 05/25/20 08:12 Urine Test NEGATIVE (NEGATIVE) 05/25/20 08:12 COVID-19 (AICHA) Negative (Negative) 05/25/20 10:50 COVID-19 Clin Com See Note 05/25/20 10:50 Discharge Plan Discharge Anticipated Discharge Date/Time: 05/27/20 15:08 Patient Disposition: Home, Self-Care Referrals: Darien Armendariz MD [Primary Care Provider] - Karri Charles MD [Physician] - 1 Week Discharge Medications: New oxycodone 5 mg tablet 5 mg PO Q6H PRN (Reason: pain) Qty: 15 RF: 0 Continued Balziva (28) 0.4-35 mg-mcg Tablet 1 tab PO DAILY RF: 0 Discharge Orders: Discharge Order (Routine); Ordered 05/27/20 Ordered By: Radha Velasco Diet: low fat, low cholesterol Activity on Discharge: No heavy lifting Patient Instructions: Laparoscopic Cholecystectomy (DC) Stand Alone Forms: Work/School Release Discharge Date/Time: 05/27/20 17:00 Activity Restrictions/Additional Instructions: If the incision area is tender, you may apply an ice pack for short intervals (No more than 20 minutes on, followed by at least 20 minutes off). Do not apply heat. Do not use creams, lotions, or topical antibiotics unless instructed to do so by your surgeon. These can cause infection or allergic reaction. Ok to shower. Remove clear dressings 3 days following your procedure. You have steri strips (small white cloth strips) covering your incision- these will fall off ~1 week. Call Your Doctor If: -Your temperature exceeds 101.5? F -You experience excessive pain or swelling -You have an unexpected reaction to medication -You have excessive bleeding -You experience continued vomiting/nausea -Your incision begins to separate -Your incision shows signs of infection such as increased redness, swelling, excessive pain, drainage (light blood or clear fluid is normal) or heat Visit Report Forms: Patient Portal Discharge page Care Plan Goals: Return to normal activity and diet Health Concerns: Acute cholecystitis Plan of Treatment: s/p laparoscopic cholecystectomy
== END 2020-05-27 17:00 | disposition home or self-care (01) | DRG 419 ==
LOC: HO.ED 12:10 → HO.S3 14:15
PROVIDERS: Admitting Provider Surgery; Emergency Provider Emergency Medicine; PCP Family Medicine; Visit Provider Surgery
PROC: 0FT44ZZ Resection of Gallbladder, Percutaneous Endoscopic Approach (ICD-10-PCS; CPT 47562; principal; 2020-05-26 13:50)
DX: K80.00 Calculus of gallbladder with acute cholecystitis without obstruction (principal); Z23 Encounter for immunization; Z20.828 Contact with and (suspected) exposure to other viral communicable diseases; Z79.899 Other long term (current) drug therapy
CPT/HCPCS: 36415; 76700; 80048; 80076; 81003; 81025; 83690; 83735; 85025; 87635; 88304; 90686; 96361; 96365; 96375; 99285; J0131; J1100; J1170; J1885; J2250; J2405; J2543; J3010

== ENCOUNTER → 2020-06-02 09:46 | Outpatient (BNVA) | payer OTHER, SELFPAY | PROVIDERS: PCP Family Medicine; Visit Provider Surgery | DX: Z76.89 Persons encountering health services in other specified circumstances (principal) ==

== ENCOUNTER → 2020-06-17 10:49 | Outpatient (BNVA) | payer OTHER, SELFPAY | PROVIDERS: PCP Family Medicine; Visit Provider Surgery | DX: Z76.89 Persons encountering health services in other specified circumstances (principal) ==